=== PATIENT | female | born 2000 | race Caucasian/White ===

== ENCOUNTER 2024-03-16 10:44 | Emergency (ER) | payer SELFPAY ==
[~2024-03-16] VITALS: Ht 165.1 cm; Wt 77.3 kg
[2024-03-16 10:49] VITALS: BP 153/91; PULSE 82; RESP 16; TEMP 98
[2024-03-16] MEDS ORDERED: IBUP-1492 PO (13:47)
== END 2024-03-16 14:37 | disposition home or self-care (01) ==
LOC: EMS 10:44
DX: S93.401A Sprain of unspecified ligament of right ankle, initial encounter (principal); W19.XXXA Unspecified fall, initial encounter; Y93.89 Activity, other specified; Y92.89 Other specified places as the place of occurrence of the external cause; Y99.8 Other external cause status
CPT/HCPCS: 29515; 99283